=== PATIENT | female | born 1935 | race Caucasian/White ===

== ENCOUNTER 2017-10-20 11:08 | Inpatient (IN) | payer MEDICARE, SELFPAY ==
[2017-10-20] VITALS (15 sets, daily range): BP systolic 127–154; BP diastolic 61–82; PULSE 73–210; RESP 14–18; TEMP 36.4–37.1; O2SAT 96–98; BMI 33.5; BMI 33.1; BMI 33.2
--- NOTE | 2017-10-20 11:23 | RAD_ITS ---
STUDY: X-RAY CHEST REASON FOR EXAM: Female, 82 years old. Chest pain. TECHNIQUE: Single AP portable view of the chest. COMPARISON: None. FINDINGS: EKG electrodes are seen. The lungs are clear and expanded. There is no demonstrated pleural abnormality. Normal size heart. Normal mediastinum and yasmany. Normal visualized pulmonary arteries. There is atherosclerotic tortuosity of the aortic arch and descending thoracic aorta. Normal visualized thoracic spine. Normal visualized ribs, clavicles, and shoulders. There is no demonstrated abnormality of the visualized soft tissue structures of the upper abdomen. RAD/Chest 1 View (Portable) IMPRESSION: No acute abnormality is seen. Electronically Signed: John Miller MD at 12:15 EST Tel [phone], Service support ,
--- NOTE | 2017-10-20 11:23 | EKG12_ITS ---
Test Reason : CP Blood Pressure : / mmHG Vent. Rate : 210 BPM Atrial Rate : 220 BPM P-R Int : 000 ms QRS Dur : 074 ms QT Int : 226 ms P-R-T Axes : 000 052 240 degrees QTc Int : 422 ms Supraventricular tachycardia Marked ST abnormality, possible inferior subendocardial injury Abnormal ECG Confirmed by ARIS KOEHLER, TRISH ([id number]), manager editorial BUCK CROWE ([id number]) on 10/21/2017 2:23:28 PM Referred By: IVETTE/ANISH Confirmed By:TRISH HURST MD
[2017-10-20] MEDS: dilTIAZem 25 MG/5 ML Vial 20 MG IV BOLUS (11:28)
[2017-10-20] MEDS: Aspirin 81 MG TAB.CHEW 324 MG PO (11:28)
[2017-10-20 11:31] LABS: Absolute Lymphocyte Count 2.34 X10^3/ul (0.83-4.51); Absolute Neutrophil Count 4.7 X10^3/uL (2.0-7.7); Basophil# 0.03 X10^3/uL; Basophil% 0.4 % (0-1); Eosinophil# 0.17 X10^3/uL; Eosinophils% 2.1 % (0-5); Hematocrit 38.3 % (37-47); Hemoglobin 12.8 g/dl (12.0-15.0); Lymphocyte # 2.34 X10^3/ul (4.0); Lymphocyte % 29.4 % (19-41); Mean Corp Hgb Conc 33.4 g/gl (32-36); Mean Corpuscular Hgb 29.8 pg (27.0-32.0); Mean Corpuscular Volume 89.3 fL (81-99); Mean Platelet Vol. 9.5 fl (6.2-12.0); Monocyte# 0.72 X10^3/uL; Monocyte% 9.1 % (0-10); Neutrophil # 4.67 X10^3/uL (2.7-7.7); Neutrophil % 58.7 % (47-70); Platelet Count 202 K/mm3 (150-450); RBC Distribution Width CV 13.3 % (11.6-14.6); Red Blood Count 4.29 M/mm3 (4.2-5.4)
[2017-10-20] MEDS: Adenosine 6 MG/2 ML Syringe IV (11:31)
--- NOTE | 2017-10-20 11:32 | ED.RN ---
ADENOCARD 6MG GIVEN AT 1115
[2017-10-20 11:33] LABS: POSITIVE COUNT NO; POSITIVE DIFFERENTIAL NO; POSITIVE MORPHOLOGY NO
[2017-10-20 11:45] LABS: Anion Gap 11 (5-15); BUN 19 mg/dL (7-18); Calcium,Total 8.8 mg/dL (8.5-10.1); Chloride 103 mmol/L (98-107); Creatinine, Serum 1.36 mg/dL (0.55-1.02); EST Glomerular Filtration Rate 40 mL/min (>60); Est Glom Filt Rate - Afr Amer 48 mL/min (>60); Estimated Creatinine Clearance 36.56 ml/min; Glucose 130 mg/dL (74-106); Potassium 3.7 mmol/L (3.5-5.1); Sodium Level 139 mmol/L (136-145)
--- NOTE | 2017-10-20 12:43 | PCM.HP.STD ---
Problem List (1) HLD (hyperlipidemia) Status: Chronic Qualifiers: Hyperlipidemia type: unspecified Qualified Code(s): E78.5 - Hyperlipidemia, unspecified (2) Obesity Status: Chronic Qualifiers: Obesity type: due to excess calories Obesity classification: adult class 1 (BMI 30 - 34.9) Body mass index: BMI 33.0-33.9 (3) Blind right eye Status: Chronic (4) Questionable History of CVA Status: Chronic History of Present Illness Date of Admission: 10/20/17 Chief Complaint: Syncope, Chest Pain, Irregular Heart Rate The patient is a 82 y/o PMHx: HTN, HLD, ? CKD stage III, ? Hx CVA w/ following R eye blindness, notable diffuse extremity, primarily BL UE and torso as well as facial lesions chronically who presents to the [facility] ED on 10/20/17 with onset of substernal non-radiating chest pain which started at ~ 10 am, ~ 1 hour prior to arrival in the ED, initially noted to have been lightheaded getting out of her sons care prior to going into the store and then noted to have been walking around a store, noted to have felt onset of lightheadedness with substernal non-radiating discomfort without dyspnea, nausea or emesis complaints which prompted her to sit down following which she had a brief loss of consciousness with no associated trauma or fall given seated position. She resolved after ~ 5 minutes after which she went home and upon return home noted recurrent episode with additionally complaint of heart racing sensation prompting her to eventually present to the ED. Family notes she was ill with flu-like sxs ~ 2-3 weeks prior but seemed to have resolved. Upon ED presentation she was noted to be AF, HR initially 210, BP 131/82, RR 18, 97% on RA, EKG w/ rate related ST depression, diffuse but more inferior, improved with rate improvement, while in the ED patient treatment course included given EKG/telemetry evidence SVT, administration initially adenosine 6 mg x 1-->sinus with PACs, remained tachycardic 120s-->administered IV cardizem with improvement into HR 80s, unremarkable CBC, BMP w/ BUN/Cr 19/1.36, glucose 130, trop < 0.02, CXR without acute process. Cardiology contacted per ED physician, pending consultation. Past Medical History Past Medical History (Chronic Problems): Chronic Problems HLD (hyperlipidemia) (Chronic) Obesity (Chronic) Blind right eye (Chronic) Questionable History of CVA (Chronic) Allergies Penicillins [PCN] Allergy (Verified 10/20/17 11:09) Swelling Home Medications: Ambulatory Orders Medication Instructions Recorded Aspirin [Aspirin, Baby] 81 mg PO DAILY@0800 10/20/17 Multivitamin/Iron/Folic Acid 1 each PO DAILY 10/20/17 [Centrum Adults Tablet] Simvastatin [Zocor] 40 mg PO QHS 10/20/17 Vit C/E/Zn/Coppr/Lutein/Zeaxan 1 each PO BID 10/20/17 [Preservision Areds 2 Softgel] Surgical History: - - BLTL, Appendectomy. 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 Denies: Chills, Fever, Weight Change HEENT: Denies: Head Aches, Sinus Congestion, Sinus Drainage Cardiovascular: Reports: Chest Pain, Chest Pressure, Light Headedness, Syncope. Denies: Palpitations Respiratory: Denies: Cough, Shortness of breath at rest, Sputum production Gastrointestinal: Denies: Abdominal Pain, Nausea, Vomiting Genitourinary: Denies: Dysuria Musculoskeletal: Denies: Joint Pain, Joint Tenderness Skin: Reports: Skin Changes. Denies: Rash, Wounds Neurological: Denies: Numbness, Tingling, Focal weakness Psychiatric: Denies: Anxiety, Depression, Homicidal Ideations, Suicidal Ideations Hematologic/ Lymphatic: Denies: Easy Bruising, Easy Bleeding VTE Information - Inpt Only VTE Present on Admission: No VTE Mechan Device Prophylaxis: SCD's VTE Pharm Prophylaxis ordered?: Yes Subjective: Seated upright in the ED bed, NAD, notes chest pain and prior lightheadedness has resolved since ED correction of rhythm/rate. Objective: Physical Examination: General: awake, alert, oriented x 3 and cooperative, seated upright in the ED bed in no apparent distress. Skin: normal color, turgor, no icterus, cyanosis, diffuse BL UE, torso, facial tag lesions. HEENT: AT/NC, R eye legal blindness otherwise EOMI and PERRLA, mildly dry MM, no carotid bruits or JVD noted. Lungs: CTA bilaterally, moderate effort, mild decrease BL bases, no rales, ronchi or wheezing. Heart: Regular rate and rhythm; no gallop, rub audible. Abdomen: soft, obese, NTTP, ND, normal BS, no HSM. Extremities: no cyanosis, clubbing, or edema. Neurological: patient awake, alert, oriented x 3; cognitive function intact; cranial nerves II-XII grossly normal aside R eye legal blindness, moving all 4 extremities, no focal deficits, strength improved, mildly globally decreased. Psychiatric: affect appears normal, no acute evidence of depressive or anxiety feelings. - Physical Exam Vital Signs Temp Pulse Resp BP Pulse Ox 97.5 F L 86 16 140/67 H 98 10/20/17 11:10 10/20/17 12:13 10/20/17 12:13 10/20/17 12:13 10/20/17 12:13 Oxygen Flow Rate 2 Oxygen Delivery Method Nasal Cannula Weight: 154 lb 12.232 oz Body Mass Index (BMI) 33.5 Laboratory Tests Past 24 Hrs 10/20/17 10/20/17 11:14 11:14 WBC 8.0 RBC 4.29 Hgb 12.8 Hct 38.3 MCV 89.3 MCH 29.8 MCHC 33.4 RDW 13.3 RDW Differential 43.0 Plt Count 202 MPV 9.5 Immature Gran % (Auto) 0.300 Neut % (Auto) 58.7 Lymph % (Auto) 29.4 [place] % (Auto) 9.1 Eos % (Auto) 2.1 Baso % (Auto) 0.4 Absolute Neuts (auto) 4.7 Absolute Lymphs (auto) 2.34 Total Counted Not Reportable Sodium 139 Potassium 3.7 Chloride 103 Carbon Dioxide 25.0 Anion Gap 11 BUN 19 H Creatinine 1.36 H Estim Creat Clear Calc 36.56 Est GFR (MDRD) Af Amer 48 L Est GFR (MDRD) Non-Af 40 L BUN/Creatinine Ratio 14.0 Glucose 130 H Calcium 8.8 Troponin I < 0.02 Assessment/Plan The patient is a 82 y/o PMHx: HTN, HLD, ? CKD stage III who presents to the [facility] ED on 2/27/18 with onset of substernal non-radiating chest pain which started at ~ 10 am, noted to have been walking around a store, noted to have felt onset of lightheadedness with discomfort which prompted her to sit down following which she had a brief loss of consciousness with no associated trauma or fall given seated position. (1) Syncopal Event w/ Arrhythmia, SVT w/ associated Chest Pain: Syncopal event secondary to arrhythmia. Patient improved w/ adenosine and sinus tachycardia following improved w/ cardizem bolus x 1, EKG initially w/ rate related ST depression, diffuse but more inferior, improved with rate improvement, CXR without acute process, trop normal x 1, will admit to PCU, maintain on a monitored bed, continue serial cardiac enzymes and EKGs. Obtain magnesium and TSH level upon admission. Continue medical management w/ asa, added low BB but will defer regimen choice to cardiology, continued home statin w/ AM FLP. Cardiology consulted, pending. ASA, NG, morphine. ECHO ordered, pending. (2) ? CKD stage III: Admission BUN/Cr /.36, unclear if chronic disease, suspected given age and co-morbidities, will repeat level in AM. (3) Hyperglycemia: Admission glucose 130, will obtain HgbA1c level. (4) Hypertension: Regimen not listed, patient notes taking lisinopril 2.5 mg daily only, BP mildly elevated upon presentation, low dose BB added as noted, PRN hydralazine. (5) Hyperlipidemia: Maintain on home statin regimen, FLP in AM. (6) ? Hx CVA w/ R Eye Blindness: She notes mini-CVA hx with following R eye blindness, maintained on asa, statin, she notes low dose ACEI only 2.5 mg daily. (7) BL UE, Torso, Facial Lesions: Appears consistent with Neurofibromatosis, she notes father with similar appearance, notes onset skin lesions age 30-40, given this history, will need to have follow-up with primary care physician as pending type may need routine MRI scans, routine ophthalmological examinations, audiology testing and dermatology assessments. Will discuss concerns with her primary care physician office to assure appropriate follow-up. (8) DVT Prophylaxis: SCDs, renally dosed lovenox. Code Visit Inpatient E&M: 42695 Init Hosp L3
--- NOTE | 2017-10-20 12:47 | ED.RN ---
DR FREY PAGED FOR DR OCONNELL
--- NOTE | 2017-10-20 12:56 | HP.PCM_ITS ---
Problem List (1) HLD (hyperlipidemia) Status: Chronic Qualifiers: Hyperlipidemia type: unspecified Qualified Code(s): E78.5 - Hyperlipidemia , unspecified (2) Obesity Status: Chronic Qualifiers: Obesity type: due to excess calories Obesity classification: adult class 1 (BMI 30 - 34.9) Body mass index: BMI 33.0-33.9 (3) Blind right eye Status: Chronic (4) Questionable History of CVA Status: Chronic History of Present Illness Date of Admission: 10/20/17 Chief Complaint: Syncope, Chest Pain, Irregular Heart Rate The patient is a 82 y/o PMHx: HTN, HLD, ? CKD stage III, ? Hx CVA w/ following R eye blindness, notable diffuse extremity, primarily BL UE and torso as well as facial lesions chronically who presents to the [facility] ED on 10/20/17 with onset of substernal non-radiating chest pain which started at ~ 10 am, ~ 1 hour prior to arrival in the ED, initially noted to have been lightheaded getting out of her sons care prior to going into the store and then noted to have been walking around a store, noted to have felt onset of lightheadedness with substernal non- radiating discomfort without dyspnea, nausea or emesis complaints which prompted her to sit down following which she had a brief loss of consciousness with no associated trauma or fall given seated position. She resolved after ~ 5 minutes after which she went home and upon return home noted recurrent episode with additionally complaint of heart racing sensation prompting her to eventually present to the ED. Family notes she was ill with flu-like sxs ~ 2-3 weeks prior but seemed to have resolved. Upon ED presentation she was noted to be AF, HR initially 210, BP 131/82, RR 18, 97% on RA, EKG w/ rate related ST depression, diffuse but more inferior, improved with rate improvement, while in the ED patient treatment course included given EKG/telemetry evidence SVT, administration initially adenosine 6 mg x 1-->sinus with PACs, remained tachycardic 120s-->administered IV cardizem with improvement into HR 80s, unremarkable CBC, BMP w/ BUN/Cr 19/1.36, glucose 130, trop < 0.02, CXR without acute process. Cardiology contacted per ED physician, pending consultation. Past Medical History Past Medical History (Chronic Problems): Chronic Problems HLD (hyperlipidemia) (Chronic) Obesity (Chronic) Blind right eye (Chronic) Questionable History of CVA (Chronic) Allergies Penicillins [PCN] Allergy (Verified 10/20/17 11:09) Swelling Home Medications: Ambulatory Orders Medication Instructions Recorded Aspirin [Aspirin, Baby] 81 mg PO DAILY@0800 10/20/17 Multivitamin/Iron/Folic Acid 1 each PO DAILY 10/20/17 [Centrum Adults Tablet] Simvastatin [Zocor] 40 mg PO QHS 10/20/17 Vit C/E/Zn/Coppr/Lutein/Zeaxan 1 each PO BID 10/20/17 [Preservision Areds 2 Softgel] Surgical History: - - BLTL, Appendectomy. 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 Denies: Chills, Fever, Weight Change HEENT: Denies: Head Aches, Sinus Congestion, Sinus Drainage Cardiovascular: Reports: Chest Pain, Chest Pressure, Light Headedness, Syncope. Denies: Palpitations Respiratory: Denies: Cough, Shortness of breath at rest, Sputum production Gastrointestinal: Denies: Abdominal Pain, Nausea, Vomiting Genitourinary: Denies: Dysuria Musculoskeletal: Denies: Joint Pain, Joint Tenderness Skin: Reports: Skin Changes. Denies: Rash, Wounds Neurological: Denies: Numbness, Tingling, Focal weakness Psychiatric: Denies: Anxiety, Depression, Homicidal Ideations, Suicidal Ideations Hematologic/ Lymphatic: Denies: Easy Bruising, Easy Bleeding VTE Information - Inpt Only VTE Present on Admission: No VTE Mechan Device Prophylaxis: SCD's VTE Pharm Prophylaxis ordered?: Yes Subjective: Seated upright in the ED bed, NAD, notes chest pain and prior lightheadedness has resolved since ED correction of rhythm/rate. Objective: Physical Examination: General: awake, alert, oriented x 3 and cooperative, seated upright in the ED bed in no apparent distress. Skin: normal color, turgor, no icterus, cyanosis, diffuse BL UE, torso, facial tag lesions. HEENT: AT/NC, R eye legal blindness otherwise EOMI and PERRLA, mildly dry MM, no carotid bruits or JVD noted. Lungs: CTA bilaterally, moderate effort, mild decrease BL bases, no rales, ronchi or wheezing. Heart: Regular rate and rhythm; no gallop, rub audible. Abdomen: soft, obese, NTTP, ND, normal BS, no HSM. Extremities: no cyanosis, clubbing, or edema. Neurological: patient awake, alert, oriented x 3; cognitive function intact; cranial nerves II-XII grossly normal aside R eye legal blindness, moving all 4 extremities, no focal deficits, strength improved, mildly globally decreased. Psychiatric: affect appears normal, no acute evidence of depressive or anxiety feelings. - Physical Exam Vital Signs Temp Pulse Resp BP Pulse Ox 97.5 F L 86 16 140/67 H 98 10/20/17 11:10 10/20/17 12:13 10/20/17 12:13 10/20/17 12:13 10/20/17 12:13 Oxygen Flow Rate 2 Oxygen Delivery Method Nasal Cannula Weight: 154 lb 12.232 oz Body Mass Index (BMI) 33.5 Laboratory Tests Past 24 Hrs 10/20/17 10/20/17 11:14 11:14 WBC 8.0 RBC 4.29 Hgb 12.8 Hct 38.3 MCV 89.3 MCH 29.8 MCHC 33.4 RDW 13.3 RDW Differential 43.0 Plt Count 202 MPV 9.5 Immature Gran % (Auto) 0.300 Neut % (Auto) 58.7 Lymph % (Auto) 29.4 [place] % (Auto) 9.1 Eos % (Auto) 2.1 Baso % (Auto) 0.4 Absolute Neuts (auto) 4.7 Absolute Lymphs (auto) 2.34 Total Counted Not Reportable Sodium 139 Potassium 3.7 Chloride 103 Carbon Dioxide 25.0 Anion Gap 11 BUN 19 H Creatinine 1.36 H Estim Creat Clear Calc 36.56 Est GFR (MDRD) Af Amer 48 L Est GFR (MDRD) Non-Af 40 L BUN/Creatinine Ratio 14.0 Glucose 130 H Calcium 8.8 Troponin I < 0.02 Assessment/Plan The patient is a 82 y/o PMHx: HTN, HLD, ? CKD stage III who presents to the [facility] ED on 2/27/18 with onset of substernal non-radiating chest pain which started at ~ 10 am, noted to have been walking around a store, noted to have felt onset of lightheadedness with discomfort which prompted her to sit down following which she had a brief loss of consciousness with no associated trauma or fall given seated position. (1) Syncopal Event w/ Arrhythmia, SVT w/ associated Chest Pain: Syncopal event secondary to arrhythmia. Patient improved w/ adenosine and sinus tachycardia following improved w/ cardizem bolus x 1, EKG initially w/ rate related ST depression, diffuse but more inferior, improved with rate improvement, CXR without acute process, trop normal x 1, will admit to PCU, maintain on a monitored bed, continue serial cardiac enzymes and EKGs. Obtain magnesium and TSH level upon admission. Continue medical management w/ asa, added low BB but will defer regimen choice to cardiology, continued home statin w/ AM FLP. Cardiology consulted, pending. ASA, NG, morphine. ECHO ordered, pending. (2) ? CKD stage III: Admission BUN/Cr /.36, unclear if chronic disease, suspected given age and co-morbidities, will repeat level in AM. (3) Hyperglycemia: Admission glucose 130, will obtain HgbA1c level. (4) Hypertension: Regimen not listed, patient notes taking lisinopril 2.5 mg daily only, BP mildly elevated upon presentation, low dose BB added as noted, PRN hydralazine. (5) Hyperlipidemia: Maintain on home statin regimen, FLP in AM. (6) ? Hx CVA w/ R Eye Blindness: She notes mini-CVA hx with following R eye blindness, maintained on asa, statin, she notes low dose ACEI only 2.5 mg daily. (7) BL UE, Torso, Facial Lesions: Appears consistent with Neurofibromatosis, she notes father with similar appearance, notes onset skin lesions age 30-40, given this history, will need to have follow-up with primary care physician as pending type may need routine MRI scans, routine ophthalmological examinations, audiology testing and dermatology assessments. Will discuss concerns with her primary care physician office to assure appropriate follow-up. (8) DVT Prophylaxis: SCDs, renally dosed lovenox. Code Visit Inpatient E&M: 27781 Init Hosp L3
--- NOTE | 2017-10-20 12:59 | ED.VISSUMM ---
- ER Visit Summary Date of Service: 10/20/17 Chief Complaint: Chest pain History of Present Illness: The patient is a 82 F who presents with chest pain. She complains of substernal chest heaviness which began while walking around at a store. She also felt like her heart rate was fast. She became dizzy and lightheaded. She sat down and did have a loss of consciousness. Currently she states her pain is resolved. She does complain of shortness of breath. No nausea vomiting diaphoresis or fever. She has had intermittent prior similar episodes. She also reports some recent congestion and rhinorrhea. No fevers. Physical Examination: Initial heart rate 210 vitals otherwise within normal limits Moist mucous membranes Heart regular tachycardia Lungs are clear Abdomen soft and nontender Extremities nontender without edema Alert Test Results: Initial EKG shows supraventricular tachycardia at a rate of [address] depression. Repeat EKG shows sinus tachycardia with premature supraventricular complexes. Chest x-ray shows no acute abnormality. Laboratory studies notable for creatinine of 1.36. Troponin negative. Emergency Department Course and Treatment: Was seen shortly after arrival. She was given 6 mg of adenosine. She converted to a sinus rhythm with frequent ectopy. She remained tachycardic and was given IV Cardizem. On reevaluation heart rate is in the 80s and she is completely asymptomatic. She was also given aspirin due to her chest pain. Given chest pain and loss of consciousness she requires admission for further workup and management. Patient discussed with hospitalist and will be admitted. Treatment Plan: [] Disposition: Admit Impression: SVT Syncope Chest pain This note was generated with Widem[employer] dictation software. It may contain incorrect words, spelling, and punctuation that were not noted in review of the chart prior to signing ED Disposition - Plan for ED Patient: Chief Complaint: Chest Pain Referrals: Candice Salazar DO [Primary Care Provider] -
--- NOTE | 2017-10-20 13:40 | ECHOD_ITS ---
Reason For Study: ARRHYTHMIA Procedure This was a 2D Doppler, Color Flow transthoracic echocardiogram. The study was technically difficult. Exam performed portable in patient room. Left Ventricle Normal LV size. Left ventricular systolic function is normal. The estimated ejection fraction is 60 %. Transmitral diastolic flow velocities suggest mild (stage 1) diastolic dysfunction (reversed pattern). No regional wall motion abnormalities noted. Right Ventricle Normal RV size. Normal systolic function. Atria Normal left atrium. Normal right atrium. Mitral Valve Normal mitral valve. Tricuspid Valve Normal tricuspid valve. Aortic Valve Trisinus/trileaflet aortic valve. Pulmonic Valve Normal pulmonic valve. Great Vessels Normal aortic root. The pulmonary artery is normal size. Normal inferior vena cava. Inferior vena cava collapse with sniff. Pericardium/Pleural No pericardial effusion. MMode/2D Measurements & Calculations LVIDd: 4.3 cm IVSd: 0.49 cm LVOT diam: 2.0 cm LVIDs: 3.1 cm LVPWd: 0.50 cm LVOT area: 3.1 cm2 RVDd: 3.7 cm FS: 27.6 % Ao root diam: 3.2 cm LAV(MOD-bp): 47.8 ml LA A4 area: 17.3 cm2 LA dimension: 4.3 cm LAV(MOD-bp) Indexed: 33.5 ml/m2 LAV(MOD-sp2): 47.8 ml LAV(MOD-sp4): 45.0 ml RA A4 area: 13.4 cm2 Doppler Measurements & Calculations MV E max trisha: 77.2 cm/sec MV V2 max: 106.2 cm/sec Ao V2 max: 128.9 cm/sec MV A max trisha: 92.3 cm/sec MV max P.5 mmHg Ao max P.7 mmHg MV E/A: 0.84 MV V2 mean: 60.1 cm/sec MAXI(V,D): 2.7 cm2 MV mean P.7 mmHg MV V2 VTI: 25.9 cm LV V1 max: 114.2 cm/sec PA V2 max: 102.9 cm/sec TR max trisha: 238.3 cm/sec LV V1 max P.2 mmHg TR max P.8 mmHg Interpretation Summary Normal LV size. Left ventricular systolic function is normal. The estimated ejection fraction is 60 %. Transmitral diastolic flow velocities suggest mild (stage 1) diastolic dysfunction (reversed pattern). Ordering Physician: Jeannie Alvarez Referring Physician: KAUR GONSALES Performed By: Anu Niño, NOEL, RVT
[2017-10-20 14:09] LABS: Magnesium 2.4 mg/dL (1.6-2.6)
[2017-10-20 15:30] LABS: T4 Free Direct 1.07 ng/dL (0.76-1.46)
[2017-10-20] MEDS: Metoprolol Tartrate 25 MG Tablet 12.5 MG PO (15:53)
[2017-10-20 16:12] LABS: Hemoglobin A1c 5.4 % (4.2-6.3)
--- NOTE | 2017-10-20 18:29 | PCM.CONS.C ---
Reason for Consult Date of Consultation: 10/20/17 Reason for Consultation: Fast heartbeat and chest pain. History of Present Illness: The patient is a 82 year old F no previous cardiac history other than hyperlipidemia who presented to the emergency room today. She says that she had been having these episodes of palpitations over a few months. Today she went to the post office the bank and then the [employer] store. While at the [employer] store she started having these palpitations associated with chest discomfort. She passed out briefly and then afterwards got up to finish her shopping to get a few things for herself as well as for her cat. After that she noticed some more palpitations and decided to present to the emergency room. In the emergency room she was noted to be in a narrow complex tachycardia. She was noted to be in a rate of approximately 210 bpm she was given intravenous adenosine which converted her back to sinus rhythm. At the moment she says that she is free of any chest discomfort. She has had no diaphoresis and has had no previous syncope. She has had no previous cardiac workup though she says that she has had these palpitations for a while. Chest discomfort she said was a heaviness across her chest but more in the middle. There was no radiation per se. [] Past Medical History Allergies/Adverse Reactions: Allergies Penicillins [PCN] Allergy (Verified 10/20/17 11:09) Swelling Home Medications: Ambulatory Orders Medication Instructions Recorded Amlodipine [Norvasc] 2.5 mg PO DAILY 10/20/17 Aspirin [Aspirin, Baby] 81 mg PO DAILY@0800 10/20/17 Multivitamin/Iron/Folic Acid 1 each PO DAILY 10/20/17 [Centrum Adults Tablet] Simvastatin [Zocor] 40 mg PO QHS 10/20/17 Vit C/E/Zn/Coppr/Lutein/Zeaxan 1 each PO BID 10/20/17 [Preservision Areds 2 Softgel] Past Medical History (Chronic Problems): Chronic Problems HLD (hyperlipidemia) (Chronic) Obesity (Chronic) Blind right eye (Chronic) Questionable History of CVA (Chronic) Surgical History: - - BLTL, Appendectomy. 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 Denies: Chest Discomfort, Orthopnea, PND, Peripheral Edema, Lightheadedness, Dizziness, Near Syncope Respiratory: Denies: Cough, Sputum Production, Hemoptysis Gastrointestinal: Denies: Hematemesis, Hematochezia, Melena Genitourinary: Denies: Dysuria, Hematuria Skin: Denies: Rash Subjectve: Pleasant lady in no distress Objective: Vital Signs Temp Pulse Resp BP Pulse Ox 98.5 F 81 18 154/68 H 96 10/20/17 15:50 10/20/17 16:14 10/20/17 15:50 10/20/17 15:50 10/20/17 15:50 Oxygen Flow Rate 2 Oxygen Delivery Method Room Air Weight: 153 lb 3.54 oz Body Mass Index (BMI) 33.1 General: Awake, Alert, Oriented x 3 HEENT: PERRL, EOMI, Sclera Non Icteric Neck: Supple, Good ROM, No Lymph Node Enlargement Lungs: Clear to auscultation Cardiovascular: Regular Rhythm, Normal S1, Normal S2, No Murmurs, No Rubs, No Gallops Vascular: No Carotid Bruits - lesions suggetive of neurofibromas, Normal Femoral Pulses, Normal Radial Pulses, Normal Dorsalis Pedal Pulse, Normal Posterior Tibial Pulses Abdomen: Bowel Sounds Present, Soft, Non Tender, No HSM, No Organomegaly Extremities: No Cyanosis, No Clubbing, No edema Neurological: No Focal Motor or Sensory Deficit 10/20/17 14:58: Troponin I 0.04 10/20/17 14:58: Hemoglobin A1c 5.4 Rhythm: EKG: Initial EKG demonstrates narrow complex tachycardia with a rate of [address] depression. Follow-up EKG demonstrates sinus tachycardia with premature atrial complexes. Assessment/Plan 1. Supra ventricular tachycardia. In presents with palpitations and EKG changes suggestive of supraventricular tachycardia accompanied by a syncopal episode. The etiology and concomitant factors are not clear at this time but with her ST depression as well as the fast rate I would suggest that we investigate the above by excluding obstructive coronary disease. If the above is excluded then I would recommend that she undergo EP evaluation for possible ablation. An echocardiogram should also be performed to assess her left ventricular function and exclude any structural lesions. 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 2. Chest pain Chest pain was likely secondary to her rapid ventricular response rate. At this time I would not recommend any stress testing but would like to start her on a beta-jamarcus with Lopressor 25 mg twice a day as well as clopidogrel and aspirin. Depending on the findings of the cardiac catheterization further recommendations will be made. The risks benefits and alternatives have been explained to her she agrees to proceed. I did explain to her that we would initially approach it via the radial approach and if she does need an intervention she would undergo an angioplasty via the groin approach she does understand and is agreeable. 3. Hypertension He appears to have hypertension and my recommendation be to start her on the beta-jamarcus and observe how she improves. Thank you for allowing me to participate in the care of your patient. Please don't hesitate to call if any issues arise
[2017-10-20] MEDS: Clopidogrel Bisulfate 300 MG Tablet PO (19:01)
[2017-10-20] MEDS: Famotidine 20 MG Tablet PO (21:01)
[2017-10-20] MEDS: Metoprolol Tartrate 25 MG Tablet PO (21:01)
[2017-10-20] MEDS: 0.9% NaCl Peripheral Flush Adult/Peds IV (21:01)
[2017-10-20] MEDS: Atorvastatin Calcium 20 MG Tablet PO (21:01)
[2017-10-21] VITALS (21 sets, daily range): BP systolic 115–157; BP diastolic 51–76; PULSE 60–77; RESP 14–16; TEMP 36.6–37; O2SAT 92–96
--- NOTE | 2017-10-21 05:55 | EKG12_ITS ---
Test Reason : AM EKG Blood Pressure : / mmHG Vent. Rate : 070 BPM Atrial Rate : 070 BPM P-R Int : 144 ms QRS Dur : 084 ms QT Int : 426 ms P-R-T Axes : 063 043 042 degrees QTc Int : 460 ms Normal sinus rhythm Normal ECG When compared with ECG of 20-OCT-2017 11:20, MANUAL COMPARISON REQUIRED, DATA IS UNCONFIRMED Confirmed by ARIS KOEHELR, TRISH ([id number]), editor producer BUCK CROWE ([id number]) on 10/28/2017 1:23:47 PM Referred By: DR FLORES Confirmed By:TRISH HURST MD
[2017-10-21 05:58] LABS: Hematocrit 33.7 % (37-47); Hemoglobin 10.9 g/dl (12.0-15.0); Mean Corp Hgb Conc 32.3 g/gl (32-36); Mean Corpuscular Hgb 29.1 pg (27.0-32.0); Mean Corpuscular Volume 89.9 fL (81-99); Mean Platelet Vol. 9.2 fl (6.2-12.0); Platelet Count 149 K/mm3 (150-450); RBC Distribution Width CV 13.7 % (11.6-14.6); RBC Distribution Width SD 43.8 fl (35.1-43.9); Red Blood Count 3.75 M/mm3 (4.2-5.4); White Blood Count 5.3 K/mm3 (4.4-11.0)
[2017-10-21 05:59] LABS: Scan Indicated on CBC? Y/N NO
[2017-10-21 06:06] LABS: International Normalized Ratio 1.1; Partial Thromboplast Time 31.4 Seconds (24.1-36.2); Prothrombin Time (Protime)PT. 13.9 SECONDS (11.7-14.9)
[2017-10-21 06:32] LABS: Anion Gap 6 (5-15); BUN 20 mg/dL (7-18); BUN/Creat Ratio 22.9 RATIO (10-20); Calcium,Total 8.2 mg/dL (8.5-10.1); Chloride 108 mmol/L (98-107); Cholesterol 114 mg/dL (200); Creatinine, Serum 0.87 mg/dL (0.55-1.02); EST Glomerular Filtration Rate 66 mL/min (>60); Est Glom Filt Rate - Afr Amer 80 mL/min (>60); Estimated Creatinine Clearance 56.59 ml/min; Glucose 116 mg/dL (74-106); High Density Lipoprotein 50 mg/dL; Potassium 4.1 mmol/L (3.5-5.1); Sodium Level 140 mmol/L (136-145); Triglycerides 67 mg/dL; Very Low Density Lipoprotein 13 mg/dL (5-40)
[2017-10-21 06:34] LABS: Color, Urine Yellow (Yellow); Glucose, Dipstick Normal (Normal); Ketone-Dipstick Negative (Negative); Leukocyte Esterase-Dipstick Negative /ul (Negative); Nitrite-Dipstick Negative (Negative); Occult Blood-Urine Negative /ul (Negative); Protein-Dipstick Negative (Negative); Urine Bilirubin Dipstick Negative (Negative); Urine Clarity Clear (Clear); Urine Urobilinogen Normal (Normal); Urine pH 6.5 (5.0 - 8.0)
[2017-10-21] MEDS: Metoprolol Tartrate 25 MG Tablet PO (06:41)
[2017-10-21] MEDS: Clopidogrel Bisulfate 75 MG Tablet PO (06:41)
[2017-10-21] MEDS: Aspirin E.C. 81 MG Tablet PO (06:43)
--- NOTE | 2017-10-21 06:51 | NURSING ---
Called report to [facility] in laborer construction or leak gang
--- NOTE | 2017-10-21 07:47 | CL.D_ITS ---
Patient Name: OLIMPIA NETTLES Study Date: 10/21/2017 Performing: Lev Zarco MD Ht: 57.08 inches 145 cm : 1935 Wt: 154.32 lbs 70 kg Age: 82 Gender: female BSA: 1.61 PROCEDURE(S) PERFORMED [id number]/LV CLINICAL PROFILE AND INDICATIONS INDICATIONS: 82 yo with SVT Stress/Imaging Stress/Image Study Performed: No Angina Classification Anginal Classification w/in 2 Weeks: No symptoms CAD Presentations: Symptom unlikely to be ischemic. CONCLUSIONS Minimal CAD. Normal EF RECOMMENDATIONS Medical therapy Refer to EP DESCRIPTION OF PROCEDURE The patient arrived to the procedure lab. The risks and benefits of the procedure as well as a full d escription of our services here and current unavailability of surgical backup were fully explained to the patient and/or their significant other prior to the catheterization. The Timeout was completed, verifying the correct patient and procedure. The patient's procedural site was prepped and draped in the usual fashion. Local anesthetic was given subcutaneously to right radial region with Lidocaine 2% . Using a modified Seldinger technique, arterial access was obtained via the right radial artery, a 6 Fr sheath was inserted. Left Coronary Artery selective angiography was performed in multiple views u sing a 5 Fr. 4.0 Wausa catheter. Right Coronary Artery selective angiography was then performed in mu ltiple views using a 5 Fr. 4.0 Wausa catheter. Left Ventriculography was performed in MAGANA projection using a 5 Fr. Pigtail catheter. LV to AO pullback pressures were then recorded.The arterial sheath wa s pulled and a TR Band was applied for hemostasis with 15ml air CORONARY ANGIOGRAPHY DOMINANCE: Right Dominant LEFT HEART ASSESSMENT Left Ventricular Ejection Fraction: by LV Gram 60 % Normal LV wall motion Normal Left Ventricular systolic function LEFT MAIN: Angiographically normal LEFT ANTERIOR DECENDING ARTERY: Angiographically normal CIRCUMFLEX ARTERY: Angiographically normal RIGHT CORONARY ARTERY: MID RCA: Mild luminal irregularities COMPLICATIONS No Complications PROCEDURE MEDICATIONS Fentanyl 50 mcg IV Versed 1 mg IV Oxygen: 2 L/min via nasal cannula Heparin diluted in 23cc Heparinized saline. Patient given 10cc IA of this solution. 10/21/2017 07:28: 10 Verapamil 2.5mg, Ntg 100mcgs, 2000 units of Heparin diluted in 23cc Heparinized saline. Patient give n 10cc IA of this solution. 10/21/2017 07:28:10 SUMMARY OF HEMODYNAMIC DATA Time AIR REST ECG 07:09:38 AO 96/49 (68) SA 07:31:05 LV 104/-2, 5 07:38:09 LV 90/-1, 7 07:38:15 LV 95/-6, 5 07:39:33 LVp 99/-6, 5 07:39:36 AOp 107/40 (65) 07:39:42 Signed By Lev Zarco MD On 10/21/2017 7:46:21 AM Lev Zarco MD
--- NOTE | 2017-10-21 07:55 | PN.CARD_ITS ---
Subjectve: The patient was seen and evaluated and underwent cardiac catheterization Objective: Vital Signs Temp Pulse Resp BP Pulse Ox 98.3 F 77 16 153/64 H 96 10/21/17 06:39 10/21/17 06:41 10/21/17 06:39 10/21/17 06:41 10/21/17 06:39 Oxygen Flow Rate 2 Oxygen Delivery Method Room Air Weight: 153 lb 3.54 oz Body Mass Index (BMI) 33.1 Intake and Output for Last 24 Hours 10/19/17 10/20/17 10/21/17 23:59 23:59 23:59 Intake Total 360 / 360 Balance 360 / 360 General: Awake, Alert, Oriented x 3 HEENT: PERRL, EOMI, Sclera Non Icteric Neck: Supple, Good ROM, No Lymph Node Enlargement Lungs: Clear to auscultation Cardiovascular: Regular Rhythm, Normal S1, Normal S2, No Murmurs, No Rubs, No Gallops Vascular: No Carotid Bruits, Normal Femoral Pulses, Normal Radial Pulses, Normal Dorsalis Pedal Pulse, Normal Posterior Tibial Pulses Abdomen: Bowel Sounds Present, Soft, Non Tender, No HSM, No Organomegaly Extremities: No Cyanosis, No Clubbing, No edema Neurological: No Focal Motor or Sensory Deficit 10/20/17 14:58: Troponin I 0.04 10/20/17 14:58: Hemoglobin A1c 5.4 10/20/17 19:01: Troponin I 0.05 10/21/17 01:43: Troponin I 0.03 10/21/17 05:45: WBC 5.3, RBC 3.75 L, Hgb 10.9 L, Hct 33.7 L, MCV 89.9, MCH 29.1 , MCHC 32.3, RDW 13.7, RDW Differential 43.8, Plt Count 149 L, MPV 9.2 10/21/17 05:45: Sodium 140, Potassium 4.1, Chloride 108 H, Carbon Dioxide 26.0, Anion Gap 6, BUN 20 H, Creatinine 0.87, Est GFR (MDRD) Af Amer 80, Est GFR (MDRD ) Non-Af 66, BUN/Creatinine Ratio 22.9 H, Glucose 116 H, Calcium 8.2 L, Triglycerides 67, Cholesterol 114, LDL Cholesterol 51, VLDL Cholesterol 13, HDL Cholesterol 50 10/21/17 05:45: PT 13.9, INR 1.1, APTT 31.4 10/21/17 06:20: Urine Color Yellow, Urine Clarity Clear, Urine pH 6.5, Ur Specific [place] 1.010, Urine Protein Negative, Urine Glucose (UA) Normal, Urine Ketones Negative, Urine Occult Blood Negative, Urine Nitrite Negative, Urine Bilirubin Negative, Urine Urobilinogen Normal, Ur Leukocyte Esterase Negative Rhythm: EKG: ECHO: Stress Test: Cardiac Cath: PCI: CT Surgery: Holter monitor: EPS: PPM: CXR: Chest CT Scan: Assessment/Plan 1. Supra ventricular tachycardia. she presents with palpitations and EKG changes suggestive of supraventricular tachycardia accompanied by a syncopal episode. The etiology and concomitant factors are not clear at this time but with her ST depression as well as the fast rate I would suggest that we investigate the above by excluding obstructive coronary disease. She therefore underwent a cardiac catheterization today which demonstrated essentially normal coronary arteries. 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 Will discuss with the patient and the family about possible electrophysiology evaluation. In the meantime we will continue beta-jamarcus with Lopressor 25 mg twice a day and aspirin. 2. Hypertension He appears to have hypertension and my recommendation be to start her on the beta-jamarcus and observe how she improves. Thank you for allowing me to participate in the care of your patient. Please don't hesitate to call if any issues arise I will let you know final decision and recommendations later today.
--- NOTE | 2017-10-21 08:47 | CASEMGMT ---
CHART REVIEW: Patient presented to ED for substernal chest pain and dizziness, found to have SVT with adm of adenosine then converted to sinus tachycardia with PACs and adm cardizem with improvement into HR 80s. Patient was admitted with plan for heart cath 10/21/17. PMHx: HLD, obesity, blind right eye, questionable CVA or TIA. The patient lives alone and has 2 sons and a dtr; strong family support. The patient is established with PCP and has medical and prescription insurance coverage. MACKENZIE PRICE spoke with senior j2ee developer, Dr. Zarco, during documentation of chart review. Per Dr. Zarco, would like to transfer patient for EP consult. MACKENZIE PRICE notified Dr. Zarco patient is in-network with [facility]. Dr. Zarco spoke to patient and family and transfer will be initiated to [facility] for further management and treatment. Disposition Plan: Transfer to Tertiary
[2017-10-21] MEDS: Famotidine 20 MG Tablet PO (10:33)
--- NOTE | 2017-10-21 10:45 | CASEMGMT ---
MACKENZIE PRICE notified by SW that patient has questions re: coverage of transport to tertiary hospital. MACKENZIE PRICE confirmed insurance will cover transport because she is being transferred to a higher level of care for medically necessary treatment. MACKENZIE PRICE notified patient and family, all verbalized understanding and agreement with transfer. Daniel Yanez, BSN, RN BC, CCM
--- NOTE | 2017-10-21 11:14 | PN_ITS ---
Subjective: Patient with no acute events overnight per self and per nursing report. Patient fatigued this morning following cardiac catheterization. Reviewed results with patient and family with included relatively normal-appearing coronary arteries with decision for transfer to acute care hospital for electrophysiology evaluation. Patient denies fevers, chills, nausea, emesis, abdominal pain, recurrent chest pain or dyspnea. Objective: Physical Examination: General: awake, alert, oriented x 3 and cooperative, seated upright in the bed in no apparent distress. Skin: normal color, turgor, no icterus, cyanosis, diffuse BL UE, torso, facial tag lesions. HEENT: AT/NC, R eye legal blindness otherwise EOMI and PERRLA, improved MMM. Lungs: CTA bilaterally, moderate effort, mild decrease BL bases, no rales, ronchi or wheezing. Heart: Regular rate and rhythm; no gallop, rub audible. Abdomen: soft, obese, NTTP, ND, normal BS. Extremities: no cyanosis, clubbing, or edema. Neurological: patient awake, alert, oriented x 3; cognitive function intact; cranial nerves II-XII grossly normal aside R eye legal blindness, moving all 4 extremities, no focal deficits, strength improved, mildly globally decreased. Psychiatric: affect appears normal, no acute evidence of depressive or anxiety feelings. Vitals/I&O's: Vital Signs Temp Pulse Resp BP Pulse Ox 98 F 68 15 157/76 H 94 10/21/17 10:36 10/21/17 10:36 10/21/17 10:36 10/21/17 10:36 10/21/17 10:36 Oxygen Flow Rate 2 Oxygen Delivery Method Room Air Weight: 153 lb 3.54 oz Body Mass Index (BMI) 33.1 Intake and Output for Last 24 Hours 10/19/17 10/20/17 10/21/17 23:59 23:59 23:59 Intake Total 360 / 360 Balance 360 / 360 Laboratory Results 10/20/17 14:58: Troponin I 0.04, Free T4 1.07 10/20/17 14:58: Hemoglobin A1c 5.4 10/20/17 19:01: Troponin I 0.05 10/21/17 01:43: Troponin I 0.03 10/21/17 05:45: WBC 5.3, RBC 3.75 L, Hgb 10.9 L, Hct 33.7 L, MCV 89.9, MCH 29.1 , MCHC 32.3, RDW 13.7, RDW Differential 43.8, Plt Count 149 L, MPV 9.2 10/21/17 05:45: Sodium 140, Potassium 4.1, Chloride 108 H, Carbon Dioxide 26.0, Anion Gap 6, BUN 20 H, Creatinine 0.87, Estim Creat Clear Calc 56.59, Est GFR ( MDRD) Af Amer 80, Est GFR (MDRD) Non-Af 66, BUN/Creatinine Ratio 22.9 H, Glucose 116 H, Calcium 8.2 L, Triglycerides 67, Cholesterol 114, LDL Cholesterol 51, VLDL Cholesterol 13, HDL Cholesterol 50 10/21/17 05:45: PT 13.9, INR 1.1, APTT 31.4 10/21/17 06:20: Urine Color Yellow, Urine Clarity Clear, Urine pH 6.5, Ur Specific [place] 1.010, Urine Protein Negative, Urine Glucose (UA) Normal, Urine Ketones Negative, Urine Occult Blood Negative, Urine Nitrite Negative, Urine Bilirubin Negative, Urine Urobilinogen Normal, Ur Leukocyte Esterase Negative Current Medications Acetaminophen (Tylenol) 650 mg PO Q6H PRN PRN PRN Reason: Non-cardiac pain (mod-severe) Hydrocodone Bitart/Acetaminophen ([place] 5mg-325mg) 1 - 2 tablet PO Q6H PRN PRN PRN Reason: Moderate-severe pain Al Hydroxide/Mg Hydroxide (Mylanta Ii) 30 ml PO Q6H PRN PRN PRN Reason: Gastric burning Aspirin (Ecotrin) 81 mg PO DAILY@0800 [facility] Last Admin: 10/21/17 06:43 Dose: 81 mg Atorvastatin Calcium (Lipitor) 20 mg PO QHS [facility] Last Admin: 10/20/17 21:01 Dose: 20 mg Enoxaparin Sodium (Lovenox) 30 mg SC DAILY@1000 [facility] Last Admin: 10/21/17 10:30 Dose: Not Given Famotidine (Pepcid) 20 mg PO BID [facility] Last Admin: 10/21/17 10:33 Dose: 20 mg Hydralazine HCl (Apresoline) 10 mg IV Q4H PRN PRN PRN Reason: SBP > 160 Sodium Chloride () 1,000 mls @ 0 mls/hr IV .Q0M [facility] PRN Reason: KVO Sodium Chloride () 1,000 mls @ 75 mls/hr IV .[id number] ALISON Magnesium Hydroxide (Milk Of Magnesia) 30 ml PO DAILY PRN PRN Reason: Constipation Metoprolol Tartrate (Lopressor (Beta Elizabeth)) 25 mg PO BID [facility] Last Admin: 10/21/17 06:41 Dose: 25 mg Morphine Sulfate (Morphine) 1 - 2 mg IV Q4H PRN PRN PRN Reason: PAIN Nitroglycerin (Nitrostat) 0.4 mg SUBLINGUAL Q5M PRN PRN Reason: CHEST PAIN Ondansetron HCl (Zofran) 4 mg IV Q8H PRN PRN PRN Reason: NAUSEA Promethazine HCl (Phenergan (Ll)) 12.5 mg IV Q6H PRN PRN PRN Reason: NAUSEA/VOMITING Sodium Chloride () 5 - 30 ml IV UD PRN PRN Reason: SALINE FLUSH Last Admin: 10/20/17 21:01 Dose: 10 ml Assessment/Plan The patient is a 82 y/o PMHx: HTN, HLD, ? CKD stage III who presents to the [facility] ED on 10/20/17 with onset of substernal non-radiating chest pain which started at ~ 10 am, noted to have been walking around a store, noted to have felt onset of lightheadedness with discomfort which prompted her to sit down following which she had a brief loss of consciousness with no associated trauma or fall given seated position. (1) Syncopal Event w/ Arrhythmia, SVT w/ associated Chest Pain: Syncopal event secondary to arrhythmia. Patient improved w/ adenosine and sinus tachycardia following improved w/ cardizem bolus x 1, EKG initially w/ rate related ST depression, diffuse but more inferior, improved with rate improvement, CXR without acute process, trop normal x 1, Patient admitted to the PCU, maintained on a monitored bed, serial cardiac enzymes remained normal. Mag normal level. TSH mildly elevated but FT4 normal thus subclinical. Continued medical management w/ asa, added low BB but will defer regimen choice to cardiology, continued home statin w/ AM FLP. 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 (2) ROMEO, ? CKD stage III, RULED OUT: Admission BUN/Cr 1.36, initially unclear if chronic disease, 10/21/17 repeat BUN/Cr 20/0.87, thus ROMEO, likely secondary to acute presentaiton and decreased oral intake. (3) Hyperglycemia: Admission glucose 130, HgbA1c normal. (4) Hypertension: Patient on low dose norvasc outpatient, held with start on BB as noted, PRN hydralazine. (5) Hyperlipidemia: Maintain on home statin regimen, FLP not marked. (6) ? Hx CVA w/ R Eye Blindness: She notes mini-CVA hx with following R eye blindness, maintained on asa, statin, BP regimen as noted. (7) BL UE, Torso, Facial Lesions: Appears consistent with Neurofibromatosis, she notes father with similar appearance, notes onset skin lesions age 30-40. Given this discussion and poor historian, contacted per PCP office and relayed her admission history and concerns to assure further evaluation as if consistent would be appropriate for more aggressive follow-up, potentially including routine MRI scans, routine ophthalmological examinations, audiology testing and dermatology assessments. (8) DVT Prophylaxis: SCDs, renally dosed lovenox.
--- NOTE | 2017-10-21 11:28 | PCM.DC.SUM ---
Discharge Date and Diagnosis Date of Admission: 10/20/17 Date of Discharge: 10/21/17 - Primary Discharge Diagnosis (1) Syncopal Event w/ Arrhythmia, SVT w/ associated Chest Pain, Normal appearing coronaries upon Cardiac Catheterization (Primary narrow complex AVNRT) (2) ROMEO, possible secondary to mild dehydration, #1 (Admission BUN/Cr 19/1.36, unclear initially if chronic disease, 10/21/17 repeat BUN/Cr 20/0.87) (3) Hyperglycemia, Likely stress response, normal HgBA1c (4) Hypertension (5) Hyperlipidemia (6) ? Hx CVA w/ R Eye Blindness (7) BL UE, Torso, Facial Lesions, Appears consistent with Neurofibromatosis - Secondary Discharge Diagnosis Chronic Problems HLD (hyperlipidemia) (Chronic) Obesity (Chronic) Blind right eye (Chronic) Questionable History of CVA (Chronic) Hospital Course and Treatment Dr. Zarco Cardiology Operations: None Procedures: 2-D Echocardiogram, Cardiac catheterization, EKG Summary of Care Provided: The patient is a 82 y/o PMHx: HTN, HLD, ? CKD stage III who presented to the [facility] ED on 10/20/17 with onset of substernal non-radiating chest pain which started at ~ 10 am, noted to have been walking around a store, noted to have felt onset of lightheadedness with discomfort which prompted her to sit down following which she had a brief loss of consciousness with no associated trauma or fall given seated position. Syncopal events secondary to arrhythmia. Patient improved w/ adenosine and sinus tachycardia following improved w/ cardizem bolus x 1, EKG initially w/ rate related ST depression, diffuse but more inferior, improved with rate improvement, CXR without acute process, trop normal x 1 in the ED. Patient admitted to the PCU, maintained on a monitored bed, serial cardiac enzymes remained normal. Mag normal level. TSH mildly elevated but FT4 normal thus subclinical. Continued medical management w/ asa, added low BB but will defer regimen choice to cardiology, continued home statin w/ AM FLP. 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 Additionally, admission BUN/Cr 19/1.36, initially unclear if chronic disease, 10/21/17 repeat BUN/Cr 20/0.87, thus ROMEO, likely secondary to acute presentaiton and decreased oral intake. Admission glucose 130, HgbA1c normal. During admission noted BL UE, Torso, Facial Lesions which appeared consistent with Neurofibromatosis and she noted her father with similar appearance, noted onset skin lesions age 30-40. Given this discussion and poor historian, contacted per PCP office and relayed her admission history and concerns to assure further evaluation as if consistent would be appropriate for more aggressive follow-up, potentially including routine MRI scans, routine ophthalmological examinations, audiology testing and dermatology assessments. Given patient presentation and work-up as noted, Dr. Zarco decision for transfer to [facility] for electrophysiology evaluation. Transfer arranged per Cardiology. Home Medications: Medications to take at Discharge Amlodipine [Norvasc] 2.5 mg PO DAILY 10/20/17 Aspirin [Aspirin, Baby] 81 mg PO DAILY@0800 10/20/17 Multivitamin/Iron/Folic Acid [Centrum Adults Tablet] 1 each PO DAILY 10/20/17 Simvastatin [Zocor] 40 mg PO QHS 10/20/17 Vit C/E/Zn/Coppr/Lutein/Zeaxan [Preservision Areds 2 Softgel] 1 each PO BID 10/20/17 Primary Care Physician: Candice Salazar DO [Primary Care Provider] - Disposition: Acute care Hospital Minutes spent on discharge:: 35 Patient Condition:: Stable Meaningful Use Info Meaningful Use Diagnoses (Choose all that apply): None applicable Code Visit Inpatient E&M: 65917 Disch Hosp
--- NOTE | 2017-10-21 11:38 | DS.PCM_ITS ---
Discharge Date and Diagnosis Date of Admission: 10/20/17 Date of Discharge: 10/21/17 - Primary Discharge Diagnosis (1) Syncopal Event w/ Arrhythmia, SVT w/ associated Chest Pain, Normal appearing coronaries upon Cardiac Catheterization (Primary narrow complex AVNRT) (2) ROMEO, possible secondary to mild dehydration, #1 (Admission BUN/Cr 19/1.36, unclear initially if chronic disease, 10/21/17 repeat BUN/Cr 20/0.87) (3) Hyperglycemia, Likely stress response, normal HgBA1c (4) Hypertension (5) Hyperlipidemia (6) ? Hx CVA w/ R Eye Blindness (7) BL UE, Torso, Facial Lesions, Appears consistent with Neurofibromatosis - Secondary Discharge Diagnosis Chronic Problems HLD (hyperlipidemia) (Chronic) Obesity (Chronic) Blind right eye (Chronic) Questionable History of CVA (Chronic) Hospital Course and Treatment Dr. Zarco Cardiology Operations: None Procedures: 2-D Echocardiogram, Cardiac catheterization, EKG Summary of Care Provided: The patient is a 82 y/o PMHx: HTN, HLD, ? CKD stage III who presented to the [facility] ED on 10/20/17 with onset of substernal non-radiating chest pain which started at ~ 10 am, noted to have been walking around a store, noted to have felt onset of lightheadedness with discomfort which prompted her to sit down following which she had a brief loss of consciousness with no associated trauma or fall given seated position. Syncopal events secondary to arrhythmia. Patient improved w/ adenosine and sinus tachycardia following improved w/ cardizem bolus x 1, EKG initially w/ rate related ST depression, diffuse but more inferior, improved with rate improvement, CXR without acute process, trop normal x 1 in the ED. Patient admitted to the PCU, maintained on a monitored bed , serial cardiac enzymes remained normal. Mag normal level. TSH mildly elevated but FT4 normal thus subclinical. Continued medical management w/ asa, added low BB but will defer regimen choice to cardiology, continued home statin w/ AM FLP. 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 Additionally, admission BUN/Cr 19/ 1.36, initially unclear if chronic disease, 10/21/17 repeat BUN/Cr 20/0.87, thus ROMEO, likely secondary to acute presentaiton and decreased oral intake. Admission glucose 130, HgbA1c normal. During admission noted BL UE, Torso, Facial Lesions which appeared consistent with Neurofibromatosis and she noted her father with similar appearance, noted onset skin lesions age 30-40. Given this discussion and poor historian, contacted per PCP office and relayed her admission history and concerns to assure further evaluation as if consistent would be appropriate for more aggressive follow-up, potentially including routine MRI scans, routine ophthalmological examinations, audiology testing and dermatology assessments. Given patient presentation and work-up as noted, Dr. Zarco decision for transfer to [facility] for electrophysiology evaluation. Transfer arranged per Cardiology. Home Medications: Medications to take at Discharge Amlodipine [Norvasc] 2.5 mg PO DAILY 10/20/17 Aspirin [Aspirin, Baby] 81 mg PO DAILY@0800 10/20/17 Multivitamin/Iron/Folic Acid [Centrum Adults Tablet] 1 each PO DAILY 10/20/17 Simvastatin [Zocor] 40 mg PO QHS 10/20/17 Vit C/E/Zn/Coppr/Lutein/Zeaxan [Preservision Areds 2 Softgel] 1 each PO BID Primary Care Physician: Candice Salazar DO [Primary Care Provider] - Disposition: Acute care Hospital Minutes spent on discharge:: 35 Patient Condition:: Stable Meaningful Use Info Meaningful Use Diagnoses (Choose all that apply): None applicable Code Visit Inpatient E&M: 08043 Disch Hosp
--- NOTE | 2017-10-21 12:59 | NURSING ---
REPORT CALLED TO JOSE
== END 2017-10-21 14:16 | disposition short-term general hospital (02) | DRG 287 ==
LOC: ED 12:30 → PCU 13:16
PROVIDERS: Internal Medicine Cardiovascular Disease; Admitting Provider Family Medicine; Emergency Provider Emergency Medicine; Family Provider Internal Medicine; PCP Internal Medicine; Visit Provider Family Medicine
DX: I47.1 Supraventricular tachycardia (principal); N17.9 Acute kidney failure, unspecified; E86.0 Dehydration; I69.398 Other sequelae of cerebral infarction; E78.5 Hyperlipidemia, unspecified; Q85.00 Neurofibromatosis, unspecified; H54.61 Unqualified visual loss, right eye, normal vision left eye; E66.9 Obesity, unspecified; I10 Essential (primary) hypertension; R55 Syncope and collapse; Z79.899 Other long term (current) drug therapy; R73.9 Hyperglycemia, unspecified; Z68.33 Body mass index [BMI] 33.0-33.9, adult
CPT/HCPCS: 36415; 71045; 80048; 80061; 81002; 83036; 83735; 84439; 84443; 84484; 85025; 85027; 85610; 85730; 87086; 93005; 93306; 93458; 99152; 99285; J7030; A4216; C1769; C1894; J0153

== ENCOUNTER 2018-09-26 09:49 | Emergency (ER) | payer MEDICARE, MEDICAID, SELFPAY ==
[2018-09-26 09:50] VITALS: BP 157/82; PULSE 85; RESP 16; TEMP 36.4; O2SAT 98; BMI 33.0
--- NOTE | 2018-09-26 10:04 | CT_ITS ---
STUDY: CT ABDOMEN AND PELVIS WITHOUT CONTRAST REASON FOR EXAM: Female, 83 years old. Left flank pain. Fall 2 days ago. History of appendectomy. RADIATION DOSAGE (If Supplied By Facility): CTDIvol = ( 11.13 ) mGy, DLP = ( 558.90 ) mGycm TECHNIQUE: Transaxial images were obtained from the dome of the diaphragm to the symphysis pubis without oral contrast, and without intravenous contrast. Sagittal and coronal images were reconstructed. Individualized dose optimization techniques were used for this CT. COMPARISON: MRCP, March 27, 2017. Abdominal ultrasound, March 18, 2017. FINDINGS: The visualized lung bases are unremarkable. The visualized portions of the heart are within normal limits. Normal liver. There multiple opaque gallstones within the gallbladder lumen. There is no wall thickening or inflammatory change. There is no biliary ductal dilatation. Normal spleen. There is a 1.2 cm cyst in the tail the pancreas best seen on image 60 of series 2. This correlates with the cyst seen on the MRI and appears unchanged in size and appearance. Normal bilateral adrenal glands. The right kidney has a normal size and cortical thickness. There is mild stranding of the perinephric fat. No renal calculi or mass. Normal right ureter. The left kidney is of normal size and cortical thickness. There is mild perinephric stranding. There is no renal calculi or mass. There is a extrarenal pelvis. Normal visualized left ureter. Normal visualized stomach. Normal small intestine. There is descending and sigmoid diverticulosis without acute inflammatory change. The proximal colon appears normal. There is non-visualization of the appendix. Is minimal atherosclerotic changes of the abdominal aorta without aneurysm. Normal inferior vena cava. Normal retroperitoneum. There is a questionable large diverticulum versus septation in the right renal pelvis. No filling defect. Normal uterus and ovaries. There is no pelvic lymphadenopathy. No free air or free fluid is seen within the peritoneal cavity. Normal abdominal wall. There are minimal degenerative changes of the lumbar spine CT/Abdomen/Pelvis without Cont IMPRESSION: 1. Cholelithiasis without acute cholecystitis. 2. Stable pancreatic cyst. 3. Mild stranding of the perinephric fat. There is no other evidence of renal or ureteral abnormality. 4. Question large diverticulum versus septation in the urinary bladder. 5. Diverticulosis without acute inflammatory change. 6. Atherosclerotic changes of the abdominal aorta. 7. Minimal degenerative changes of the lumbar spine. Electronically Signed: Teddy Mathews DO at 10:44 EST Tel [phone], Service support ,
[2018-09-26] MEDS: HYDROcodone Bitartrate/Apap 5/325 Tablet PO (10:11)
--- NOTE | 2018-09-26 10:15 | ED.VISSUMM ---
- ER Visit Summary Date of Service: 09/26/18 Chief Complaint: Back pain History of Present Illness: The patient is a 83 F who is complaining of back pain for the past 4 days after mechanical fall. Her pain is not midline its in the CVA region and extending to the left side of the abdomen she has no pain over her ribs no difficulty breathing no chest pain. She did not sustain a head injury, no neck pain. No loss consciousness. She slipped on ice and hurt the left side of her back. She is able to ambulate she has no bowel or bladder compromise no urinary retention. Pain is mild to moderate worse when she twists and turns and bends. Physical Examination: Not appear in acute distress. Moist mucous membranes, no obvious facial deformity No C-spine tenderness supple neck. Regular rate and rhythm without any obvious murmurs Clear lungs bilaterally speaking in full sentences without any obvious respiratory distress Abdomen soft and nontender no guarding or rebound Most of the pain is reproducible on the left side of the abdomen and the posterior axillary line. There is some tenderness around the CVA region as well as the paraspinal muscles. There is no spinal tenderness to palpation Moves all extremities without any difficulty or pain. Skin does not show contusions, she has multiple fibromas. Alert oriented ?3 with no gross focal deficit Emergency Department Course and Treatment: Patient has an unremarkable CT. She improved with Ferdinand. I will discharge her home with the same. This is likely musculoskeletal in etiology. Discharge stable condition Impression: Back contusion This note was generated with [employer] dictation software. It may contain incorrect words, spelling, and punctuation that were not noted in review of the chart prior to signing ED Disposition - Plan for ED Patient: Disposition: Home or Assisted Living Instructions: ED Contusion Back Prescriptions: Hydrocodone Bitart/Apap 5-325 [Ferdinand 5MG-325MG] 1 tab PO Q6H PRN PRN 3 Days #10 tab PRN Reason: Pain Referrals: Izzy Ramos DO [Primary Care Provider] -
== END 2018-09-26 11:35 | disposition home or self-care (01) ==
PROVIDERS: Emergency Provider Emergency Medicine; Family Provider Family Medicine; PCP Family Medicine
DX: S30.0XXA Contusion of lower back and pelvis, initial encounter (principal); W00.0XXA Fall on same level due to ice and snow, initial encounter; Y93.9 Activity, unspecified; Y92.89 Other specified places as the place of occurrence of the external cause; Y99.8 Other external cause status; I10 Essential (primary) hypertension; E78.00 Pure hypercholesterolemia, unspecified
CPT/HCPCS: 74176; 99283

== ENCOUNTER → 2024-02-12 | Outpatient (CLI) | payer MEDICARE, SELFPAY ==
[2024-02-12 13:19] LABS: Absolute Lymphocyte Count 1.07 X10^3/uL (0.83-4.51); Basophil# 0.03 X10^3/uL; Basophil% 0.6 % (0-1); Eosinophil# 0.13 X10^3/uL; Eosinophils% 2.7 % (0-5); Hematocrit 38.1 % (37-47); Hemoglobin 12.2 g/dL (12.0-15.0); Lymphocyte # 1.07 X10^3/ul (0.83-4.51); Lymphocyte % 22.5 % (19-41); Mean Corpuscular Hgb 28.6 pg (27.0-32.0); Mean Corpuscular Volume 89.2 fL (81-99); Mean Platelet Vol. 9.7 fl (6.2-12.0); Monocyte# 0.53 X10^3/uL; Monocyte% 11.2 % (0-10); NRBC Flagged by Analyzer 0 % (0-5); Neutrophil # 2.97 X10^3/uL (2.7-7.7); Neutrophil % 62.6 % (47-70); Platelet Count 229 K/mm3 (150-450); RBC Distribution Width CV 13.5 % (11.6-14.6); RBC Distribution Width SD 44.3 fl (35.1-43.9); Red Blood Count 4.27 M/mm3 (4.2-5.4); White Blood Count 4.8 K/mm3 (4.4-11.0)
[2024-02-12 14:17] LABS: ALB/GLOB Ratio 0.9 RATIO (0.9-2.4); AST(SGOT) 16 U/L (15-37); Alanine Aminotransfer ALT/SGPT 19 U/L (13-56); Albumin, Serum 3.2 g/dL (3.2-5.0); Alkaline Phosphatase 71 U/L (45-117); Anion Gap 3 (5-15); BUN 20 mg/dL (7-18); BUN/Creat Ratio 16.8 RATIO (10-20); Calcium,Total 8.5 mg/dL (8.5-10.1); Chloride 106 mmol/L (98-107); Creatinine, Serum 1.19 mg/dL (0.55-1.02); EST Glomerular Filtration Rate 46 mL/min (>60); Est Glom Filt Rate - Afr Amer 55 mL/min (>60); Globulin 3.5 g/dL (2.2-4.2); Glucose 117 mg/dL (74-106); Magnesium 2.6 mg/dL (1.6-2.6); Potassium 4.3 mmol/L (3.5-5.1); Protein, Total 6.7 g/dL (6.4-8.2); Sodium Level 136 mmol/L (136-145); T4 Free Direct 1.18 ng/dL (0.76-1.46); Thyroid Stim Hormone (TSH) 3.61 uIU/mL (0.358-3.74)
== END | disposition home or self-care (01) ==
LOC: LAB 12:18
PROVIDERS: PCP Family Medicine; Referring Provider Nurse Practitioner Family; Visit Provider Nurse Practitioner Family
DX: I48.91 Unspecified atrial fibrillation (principal); I47.10 Supraventricular tachycardia, unspecified; I10 Essential (primary) hypertension; E78.5 Hyperlipidemia, unspecified
CPT/HCPCS: 36415; 80053; 83735; 84439; 84443; 85025

== ENCOUNTER → 2025-02-13 | Outpatient (CLI) | payer MEDICARE, SELFPAY ==
--- NOTE | 2025-02-13 17:18 | CT_ITS ---
PROCEDURE: ABDOMEN/PELVIS WITHOUT CONT 02/13/2025 REASON FOR EXAM: NEOPLASM OF UNCERTAIN BEHAVIOR. TECHNIQUE: ABDOMEN/PELVIS WITHOUT CONT Noncontrast technique limits evaluation of the abdominal and pelvic viscera. Coronal and Sagittal reconstruction series were provided. One or more dose reduction techniques were used (e.g., Automated exposure control, adjustment of the mA and/or kV according to patient size, use of iterative reconstruction technique). COMPARISON: CT scan on 09/26/2018. FINDINGS: Bilateral basilar atelectatic pulmonary changes. Cholelithiasis without acute cholecystitis. Unchanged small sliding hiatal hernia. Gastroparesis/gastritis. Unchanged bilateral chronic renal atrophy. Unchanged scattered bilateral renal cysts. Unchanged complex lesion in the lower pole of the left kidney measuring 2.3 cm, possibly a complex cyst versus a solid lesion. Diffuse colonic diverticulosis. Mild thickening of the sigmoid colon, possibly underdistention/spasm versus mild colitis. Left adrenal nodule measuring 1.4 cm, unchanged, probably benign adenoma. Mild osteopenia. Diffuse spondylosis. Normal unenhanced liver. Normal extrahepatic biliary system. Normal unenhanced spleen. Normal pancreas. Normal bilateral adrenal glands. Normal size of the right kidney. There is no right renal mass. There are no right renal calculi. There is no right hydronephrosis. Normal visualized right ureter. Normal size of the left kidney. There is no left renal mass. There are no left renal calculi. There is no left hydronephrosis. Normal visualized left ureter. Normal small intestine. There is no demonstrated peritoneal fluid. Calcified atheromatous plaques of the abdominal aorta. Normal inferior vena cava. Normal retroperitoneum. There is no pelvic mass lesion or lymphadenopathy. There is no pelvic fluid. CT/Abdomen/Pelvis without Cont IMPRESSION: Bilateral basilar atelectatic pulmonary changes. Cholelithiasis without acute cholecystitis. Unchanged small sliding hiatal hernia. Gastroparesis/gastritis. Unchanged bilateral chronic renal atrophy. Unchanged scattered bilateral renal cysts. Unchanged complex lesion in the lower pole of the left kidney measuring 2.3 cm, possibly a complex cyst versus a solid lesion. Diffuse colonic diverticulosis. Mild thickening of the sigmoid colon, possibly underdistention/spasm versus mil d colitis. Left adrenal nodule measuring 1.4 cm, unchanged, probably benign adenoma. Mild osteopenia. Diffuse spondylosis. Reading Location: [facility]
== END | disposition home or self-care (01) ==
LOC: CT 17:11
PROVIDERS: PCP Family Medicine; Referring Provider Urology; Visit Provider Urology
DX: D41.02 Neoplasm of uncertain behavior of left kidney (principal)
CPT/HCPCS: 74176